=== PATIENT | female | born 2000 | race Two or more races ===

== ENCOUNTER → 2024-11-08 | Emergency (ER) | payer OTHER ==
[~2024-11-08] VITALS: Ht 157.5 cm; Wt 54.4 kg
[~2024-11-08] MED LIST: CEFTRIAXONE SODIUM 1,000 MG VIAL IM ONE; CEFTRIAXONE SODIUM 1,000 MG VIAL ONE; KETOROLAC TROMETHAMINE 15 MG VIAL IM ONE; KETOROLAC TROMETHAMINE 30 MG VIAL ONE; OFLOXACIN5 M1 OPHT
== END | disposition home or self-care (01) ==
LOC: ER 15:23
DX: H61.22 Impacted cerumen, left ear (principal); H92.09 Otalgia, unspecified ear